=== PATIENT | male | born 1990 ===

== ENCOUNTER 2018-12-13 18:42 | Emergency (ER) | payer BC ==
[2018-12-13 19:02] VITALS: RESP 18; BMI 25.7
[2018-12-13] MEDS ORDERED: TDAP Vaccine 0.5 mL Syr IM ONE (19:02)
[2018-12-13] MEDS ORDERED: Lidocaine 1% Inj (20ml) IJ STA (19:02)
[2018-12-13] MEDS ORDERED: Bacitracin Ointment 30 GM TUBE TOP STA (19:02)
[2018-12-13] MEDS ORDERED: Bacitracin 500 Units/gm Oint Foilpak UD ONE (19:20)
[2018-12-13 20:31] VITALS: BP 147/87; PULSE 65; TEMP 97.8; O2SAT 99
--- NOTE | 2018-12-14 16:07 | ED PDOC ---
Arrival/HPI - General Chief Complaint: Abnormal Skin Integrity Time Seen by Provider: 12/13/18 19:00 Historian: Patient - History of Present Illness Narrative History of Present Illness (Text): 28 y/o male with no significant PMH presents to the ED for evaluation of laceration that occurred at 10am. States he was at work at the [employer] shop when his arm was hit with a metal car part, causing superficial abrasions and a small laceration to his volar left forearm arm. Pt states the wound continued to bleed through the bandage he applied, prompting visit to ED. Unknown last tetanus. Denies injury elsewhere, arm pain, numbness, paresthesias, weakness. Past Medical History - Provider Review Nursing Documentation Reviewed: Yes - Psychiatric Hx Substance Use: No Family/Social History - Physician Review Nursing Documentation Reviewed: Yes Family/Social History: No Known Family HX Smoking Status: Never Smoked Hx Alcohol Use: Yes Frequency of alcohol use: Socially Hx Substance Use: No Allergies/Home Meds Allergies/Adverse Reactions: Allergies No Known Allergies Allergy (Verified 12/13/18 18:50) Home Medications: Home Meds Medication Instructions Recorded Confirmed No Known Home Med 12/13/18 12/13/18 Physical Exam Vital Signs Reviewed: Yes Vital Signs Temp Pulse Resp BP Pulse Ox 12/13/18 20:30 97.8 F 65 18 147/87 99 12/13/18 18:50 97.7 F 69 18 150/90 98 Temperature: Afebrile Blood Pressure: Normal Pulse: Regular Respiratory Rate: Normal Appearance: Positive for: Well-Appearing, Non-Toxic, Comfortable Pain Distress: None Mental Status: Positive for: Alert and Oriented X 3 - Systems Exam Head: Present: Atraumatic, Normocephalic Pupils: Present: PERRL Extroacular Muscles: Present: EOMI Conjunctiva: Present: Normal Mouth: Present: Moist Mucous Membranes Neck: Present: Normal Range of Motion Respiratory/Chest: Present: Clear to Auscultation, Good Air Exchange. No: Respiratory Distress, Accessory Muscle Use Cardiovascular: Present: Regular Rate and Rhythm, Normal S1, S2 Back: Present: Normal Inspection. No: CVA Tenderness Upper Extremity: Present: Normal ROM, NORMAL PULSES, Neurovascularly Intact, C apillary Refill < 2s, Other (bruising under laceration and abrasion). No: Normal Inspection (laceration and abrasion to left volar forearm), Cyanosis, Edema, Tenderness (no bony tenderness), Swelling, Erythema, Deformity Lower Extremity: Present: NORMAL PULSES Neurological: Present: GCS=15, CN II-XII Intact, Speech Normal, Motor Func Grossly Intact, Normal Sensory Function, Gait Normal Skin: Present: Warm, Dry, Laceration (1cm linear laceration of epidermis/dermis to left volar forearm with bruising and abrasion surrounding; no FB, tendon, or debris visualized), Abrasion (Two on left volar forearm, one proximal and one surrounding laceration). No: Rashes Psychiatric: Present: Alert, Oriented x 3, Normal Insight, Normal Concentration, Normal Affect, Normal Mood Medical Decision Making ED Course and Treatment: Initial Plan: * Wound irrigation * Wound repair * Tetanus Wound irrigated thoroughly by EMT Priscilla Laceration repaired with 2 4-0 nylon simple interrupted sutures. Wound edges well approximated, hemostatis achieved. Patient tolerated procedure well without complication. Wound dressed with bacitracin and sterile bandage by me. Wound care instructions provided. Pt verbalized understanding. Advised to return in 10 days for suture removal See procedure note. Diagnostic testing results and plan of care discussed with patient. Strict instructions given regarding prescription use, importance of followup, and signs/symptoms to return to ER including fever, chills, worsening pain, signs of wound infection, or any other new/worsening symptoms. Pt verbalized understanding of discussion. Patient is A&Ox3, ambluating with steady gait, with vital signs stable for discharge. - Medication Orders Current Medication Orders: Discontinued Medications Bacitracin (Bacitracin) 0 gm TOP STAT STA Stop: 12/13/18 19:03 Last Admin: 12/13/18 19:20 Dose: 500 units Comments: given by ER PA Lidocaine HCl (Lidocaine 1% (20ml)) 5 ml IJ STAT STA Stop: 12/13/18 19:03 Last Admin: 12/13/18 19:20 Dose: 1 % Comments: Given by ER PA Tetanus/Reduced Diphtheria/Acell Pertussis (Boostrix Vaccine Inj) 0.5 ml IM .ONCE ONE Stop: 12/13/18 19:03 Last Admin: 12/13/18 19:19 Dose: 0.5 ml Immunization Registry Document 12/13/18 19:19 TRISHA (Rec: 12/13/18 19:19 [email or web address] [id number]) [facility] provided 12/13/18 [facility] Immunization Data Document 12/13/18 19:19 TRISHA (Rec: 12/13/18 19:19 [email or web address] [id number]) Immunization Data Vaccine Information Sheet Given Yes Procedure: Wound Repair - Time Performed Time Performed: 20:00 - Time Out Time Out: Side verified, Site verified, Patient ID confirmed, Sterile procedures obs. - Procedure Procedure: Wound Repair: Wound edges well approximated; hemostasis achieved. - Consent Obtained Consent obtained: Verbal - Performed by Performed by: Mid-level Provider - Indications Indication(s):: Laceration - Location Location:: Left, Volar, Arm Shape:: Linear Dimensions Length cm: 1 Depth:: Epidermis - Anesthetic Technique Anesthetic Technique: Local Local/Regional Anesthetic:: Lidocaine 1% - Debris Debris:: None - Irrigated Irrigated with ml of normal saline: 100 - Complexity Complexity:: Simple (one layer) - Wound repair method Sutures:: # (2), Size (4-0), Type (nylon), Technique (simple interrupted) - Complications Complications: none - Patient tolerated procedure Patient Tolerated Procedure:: Well Disposition/Present on Arrival - Present on Arrival Any Indicators Present on Arrival: No History of DVT/PE: No History of Uncontrolled Diabetes: No Urinary Catheter: No History of Decub. Ulcer: No History Surgical Site Infection Following: None - Disposition Have Diagnosis and Disposition been Completed?: Yes Diagnosis: Laceration Disposition: HOME/ ROUTINE Disposition Time: 20:15 Patient Plan: Discharge Condition: IMPROVED Discharge Instructions (ExitCare): Wound Care (DC), Laceration Repair With Stitches (DC) Additional Instructions: RETURN IN 10 DAYS FOR SUTURE REMOVAL Keep wound dry and covered for 48 hours After 48 hours, you may clean the wound daily with soap and water and pat dry After cleaning, apply bacitracin and dressing Keep wound clean, dry, and covered Followup with primary doctor within 2 days Return to ER for any signs of wound infection including redness, tenderness, swelling, drainage, fever or any other new/worsening symptoms Referrals: [facility] at [facility] [place] [Outside] - Follow up with primary Amisha Beavers MD [Medical Doctor] - Follow up with primary Forms: [facility] ([place]), WORK NOTE
== END 2018-12-13 20:51 | disposition home or self-care (01) ==
LOC: ED 18:42
DX: S41.112A Laceration without foreign body of left upper arm, initial encounter (principal); W22.8XXA Striking against or struck by other objects, initial encounter; Y92.89 Other specified places as the place of occurrence of the external cause; Y99.0 Civilian activity done for income or pay; Z23 Encounter for immunization

== ENCOUNTER 2018-12-25 22:12 | Emergency (ER) | payer OTHER, BC ==
[2018-12-25 22:12] VITALS: BMI 25.7
[2018-12-25 22:21] VITALS: BP 146/86; PULSE 81; RESP 18; TEMP 97.4; O2SAT 99
--- NOTE | 2018-12-25 23:02 | ED PDOC ---
Arrival/HPI - General Chief Complaint: Suture/Staple Removal Time Seen by Provider: 12/25/18 22:14 Historian: Patient - History of Present Illness Narrative History of Present Illness (Text): 12/25/18 22:58 28-year-old male presents today for suture removal to the left forearm. Patient states about 12 days ago he sustained a laceration to the forearm with a piece of metal. Patient denies numbness weakness or tingling in the extremity. Denies fevers or chills. Patient states he's been keeping the wound clean and dry and apply bacitracin twice daily. No other complaints Past Medical History - Provider Review Nursing Documentation Reviewed: Yes - Travel History Have you recently traveled outside [place] w/in the past 3 mons?: No - Tetanus Immunization Tetanus Immunization: Up to Date - Psychiatric Hx Substance Use: No Family/Social History - Physician Review Nursing Documentation Reviewed: Yes Family/Social History: Unknown Family HX Smoking Status: Never Smoked Hx Alcohol Use: Yes Hx Substance Use: No Allergies/Home Meds Allergies/Adverse Reactions: Allergies No Known Allergies Allergy (Verified 12/13/18 18:50) Home Medications: Home Meds Medication Instructions Recorded Confirmed No Known Home Med 12/13/18 12/25/18 Review of Systems - Review of Systems Constitutional: absent: Fatigue, Fevers Respiratory: absent: SOB, Cough Cardiovascular: absent: Chest Pain, Palpitations Gastrointestinal: absent: Abdominal Pain Genitourinary Male: absent: Dysuria Musculoskeletal: absent: Arthralgias Skin: Laceration Neurological: absent: Headache Physical Exam Vital Signs Reviewed: Yes Vital Signs Temp Pulse Resp BP Pulse Ox 12/25/18 22:19 97.4 F L 81 18 146/86 99 Temperature: Afebrile Blood Pressure: Normal Pulse: Regular Respiratory Rate: Normal Appearance: Positive for: Well-Appearing, Non-Toxic, Comfortable Pain Distress: None Mental Status: Positive for: Alert and Oriented X 3 - Systems Exam Head: Present: Atraumatic Respiratory/Chest: Present: Clear to Auscultation Cardiovascular: Present: Regular Rate and Rhythm Upper Extremity: Present: Normal ROM, NORMAL PULSES, Capillary Refill < 2s, Other (left forearm; [address]; no edema, no erythema; no discharge. no tenderness. ). No: Tenderness, Swelling, Erythema, Neurovascularly Intact Neurological: Present: GCS=15 Skin: Present: Warm, Dry Psychiatric: Present: Alert, Oriented x 3 Medical Decision Making ED Course and Treatment: 12/25/18 23:53 Patient is nontoxic well-appearing in no distress. Vital signs are stable. Suture removal: 2 sutures removed Wound healing well without signs of infection I advised the patient to keep the wound clean and dry apply bacitracin twice daily and return if symptoms worsen persist or if new symptoms develop Impression: Wound check, suture removal Keep the wound clean and dry Follow up with primary care physician within the next 2 days Return immediately if symptoms worsen persist or if new symptoms develop Disposition/Present on Arrival - Present on Arrival Any Indicators Present on Arrival: No History of DVT/PE: No History of Uncontrolled Diabetes: No Urinary Catheter: No History of Decub. Ulcer: No History Surgical Site Infection Following: None - Disposition Have Diagnosis and Disposition been Completed?: Yes Diagnosis: Visit for suture removal Disposition: HOME/ ROUTINE Disposition Time: 22:57 Patient Plan: Discharge Condition: GOOD Discharge Instructions (ExitCare): Stitches Removal Additional Instructions: keep the wound clean and dry. Follow up with primary care physician within the next 2 days Return immediately if symptoms worsen persist or if new symptoms develop Referrals: Amisha Beavers MD [Medical Doctor] - Follow up with primary [facility] [Outside] - Follow up with primary
== END 2018-12-25 23:10 | disposition home or self-care (01) ==
LOC: ED 22:12
DX: S51.812D Laceration without foreign body of left forearm, subsequent encounter (principal)